=== PATIENT | male | born 1955 | race Caucasian/White ===

== ENCOUNTER 2017-01-22 13:26 | Emergency (ER) | payer BC, MEDICARE, OTHER ==
--- NOTE | 2017-01-22 14:23 | ER Document Report ---
ED Substance Abuse / Acc. OD - General Mode of Arrival: Medic Information source: Patient, Friend - HPI Patient complains to provider of: Accidental overdose Associated Symptoms: Other - See above <NATE ROBERTS - Last Filed: 01/22/17 14:38> <JOHN PAUL QUINTERO - Last Filed: 01/22/17 15:43> - General Chief Complaint: Possible Overdose Stated Complaint: POSSIBLE OVERDOSE Notes: Patient is a 61 year old male, with a past medical history of hypertension and cardiac stent placement, who presents to the emergency department via EMS for possible overdose of prescription drugs. Patient states that he took Ambien and Hydrocode over an hour before arrival. Patient states that he was not trying to harm himself but only wanted to feel better after finding out that his had left with another man this morning. Patient reports that these drugs were his own prescribed by his PCP, Dr. Smith. Patient reports that he has been taking Ambien for a long time and it takes a large dose to have any affect on him. Per friend at bedside patient's sister call EMS. PCP: Dr. Smith (NATE ROBERTS) - Related Data Allergies/Adverse Reactions: No Known Allergies Allergy (Unverified 01/22/17 14:08) Past Medical History - General Information source: Patient - Social History Smoking Status: Former Smoker Family History: Reviewed & Not Pertinent - Past Medical History Cardiac Medical History: Reports: Hx Hypercholesterolemia, Hx Hypertension Past Surgical History: Reports: Hx Coronary Stent, Hx Orthopedic Surgery <NATE ROBERTS - Last Filed: 01/22/17 14:38> Review of Systems - Review of Systems Constitutional: No symptoms reported EENT: No symptoms reported Cardiovascular: No symptoms reported Respiratory: No symptoms reported Gastrointestinal: No symptoms reported Genitourinary: No symptoms reported Male Genitourinary: No symptoms reported Musculoskeletal: No symptoms reported Skin: No symptoms reported Hematologic/Lymphatic: No symptoms reported Neurological/Psychological: No symptoms reported. denies: Suicidal ideation -: Yes All other systems reviewed and negative <NATE ROBERTS - Last Filed: 01/22/17 14:38> Physical Exam - Vital signs Interpretation: Normal - General General appearance: Appears well, Alert - HEENT Head: Normocephalic, Atraumatic Neck: No: Carotid bruit - Respiratory Respiratory status: No respiratory distress Chest status: Nontender Breath sounds: Normal Chest palpation: Normal - Cardiovascular Rhythm: Regular Heart sounds: Normal auscultation Murmur: No - Abdominal Inspection: Normal Distension: No distension Bowel sounds: Normal Tenderness: Nontender Organomegaly: No organomegaly - Extremities General upper extremity: Normal inspection General lower extremity: Normal inspection - Neurological Neuro grossly intact: Yes Cognition: Normal Orientation: AAOx4 Roxanna Coma Scale Eye Opening: Spontaneous Roxanna Coma Scale Verbal: Oriented Roxanna Coma Scale Motor: Obeys Commands Braggadocio Coma Scale Total: 15 Speech: Normal - Psychological Associated symptoms: Normal affect, Normal mood - Skin Skin Temperature: Warm Skin Moisture: Dry Skin Color: Normal <NATE ROBERTS - Last Filed: 01/22/17 14:38> Course - Laboratory Result Diagrams: 01/22/17 15:00 01/22/17 15:00 - EKG Interpretation by Me EKG shows normal: Sinus rhythm, [place], Intervals, ST-T Waves. abnormal: QRS Complexes Rate: Normal - 88 Rhythm: NSR Voltage: Consistant with LVH P Waves: LAE When compared to previous EKG there are: Previous EKG unavailable <JOHN PAUL QUINTERO - Last Filed: 01/22/17 15:43> - Vital Signs Vital signs: Temp Pulse Resp BP Pulse Ox 98.6 F 103 H 18 173/89 H 93 01/22/17 13:39 01/22/17 13:39 01/22/17 13:39 01/22/17 13:39 01/22/17 13:39 - Laboratory Laboratory results interpreted by me: 01/22/17 01/22/17 15:00 15:00 Seg Neutrophils % 79.9 H Lymphocytes % 9.8 L Urine Protein 100 H Discharge <NATE ROBERTS - Last Filed: 01/22/17 14:38> <JOHN PAUL QUINTERO - Last Filed: 01/22/17 15:43> - Discharge Clinical Impression: Reactive depression (situational) Overdose Qualifiers: Encounter type: initial encounter Injury intent: undetermined intent Qualified Code(s): T50.904A - Poisoning by unspecified drugs, medicaments and biological substances, undetermined, initial encounter Condition: Good Disposition: HOME, SELF-CARE Additional Instructions: Overdose You have taken more medication than you should have. After your evaluation and care, it is felt that your overdose is not likely to be harmful or of any significant consequences to you and you are being discharged. In the future, you should be careful not to take more medications than what is prescribed for you. Although your overdose does not seem to be of any danger to you at this time, if you develop any unusual or unexpected symptoms after your discharge, you should return to the Emergency Department immediately for re-evaluation. Depression Your evaluation reveals that you have mental depression. While symptoms may be vague, they often include disturbance of sleep, fatigue, loss of appetite, and general loss of interest in life. While depression may be a side effect of drugs, or a reaction to a major change in your life, many cases have no known cause. If depression is acute, and related to a major loss in your life, you can expect it to clear completely with time. If you have been depressed a long time , are prone to repeated bouts of depression or low mood, or have been thinking of suicide, get help. Depression can be treated with anti-depressant medication and counselling. Long-term depression will often take a few weeks to clear, even with appropriate medication. Follow-up care is important. Contact your physician, the hospital emergency center, crisis line, or your counsellor if you are losing control or having self-destructive thoughts. You should follow up with your Primary Care Physician, Dr. John Paul Smith, within 3-5 days. Referrals: JOHN PAUL SMITH [NO LOCAL MD] - Follow up in 3-5 days Scribe Attestation: 01/22/17 15:42 I personally performed the services described in the documentation, reviewed and edited the documentation which was dictated to the scribe in my presence, and it accurately records my words and actions. (JOHN PAUL QUINTERO) Scribe Documentation - Scribe Written by Ritchie:: ritchie Woodruff, 01/22/17, 1438 acting as scribe for :: Narendra <NATE ROBERTS - Last Filed: 01/22/17 14:38>
--- NOTE | 2017-01-22 15:15 | ER Document Report ---
ED Psych Disorder / Suicide - General Chief Complaint: Possible Overdose Stated Complaint: POSSIBLE OVERDOSE Time Seen by Provider: 01/22/17 14:10 Mode of Arrival: Medic Information source: Patient, Relative - daughter at bedside TRAVEL OUTSIDE OF THE [place] IN LAST 30 DAYS: No - HPI Patient complains to provider of: Overdose Suicide Risk Factors: Depressed, Male Situational problems related to: Spouse Overdose of: Other - ambien and oxycodone, maintains was not SI attempt Normal mood: No Associated symptoms: Depressed Similar symptoms previously: No Recently seen / treated by doctor: Yes Notes: Patient is a 61 year old male who presented to the ED today via EMS for an intentional OD (4-5 Ambien and 4-5 Oxycodone). Patient stated he had been talking to his sister over the telephone, they talk regularly, he informed her what he had taken, and she called EMS. He stated he "just wanted to feel better and was adamant this was not an attempt to hurt/harm/kill self." He denied previous SI attempts. He identified he found out his ran off with someone else. He denied previous hospitalizations. He stated his PCM is Dr. John Paul Vargas who prescribed all his medications. He stated in the past he had been prescribed Lexapro (after knee surgery, back issues, and getting disability) for a 4-5 year period. He noted he thinks his Ambien needs increased since it is not working as effectively as it once was. Patient was alert and oriented. Mood was depressed with congruent affect. He denied SI/HI, as well as previous attempts. He admitted he took extra medication to "feel better." He did not appear to bee responding to internal stimuli AEB fair eye contact, keeping on topic, and answering questions appropriately when addressed. Thought processes were linear. Conversational speech was somewhat mumbles yet audible and understandable. Intellectual abilities are estimated to be average. Insight, judgment and impulse control are fair AEB willingness to allow daughter to be part of discharge plan. Patient's daughter, Petra, was at bedside. She confirmed patient found out this morning about his of 42 years. She reported he has not done anything in the past to hurt/harm/kill self. She stated patient has to take his Ambien or else will not sleep. She stated she thought he had been prescribed Celexa when he went through disability and a life style change. She stated she lives down the road from patient and agreed to have control over patient's medications. Diagnosis: V61.10 (Z63.0) Relationship Distress with Spouse 311 (F32.9) Unspecified Depressive Disorder Impression/Plan: Recommendation to discharge patient home with daughter once medically cleared. He is psychiatrically cleared at this time. He does not meet [place] IVC criteria. He denied SI/HI and no observed psychosis. His daughter is at bedside (natural support), stated patient would not be left alone , and agreed to have control over patient's medications. Patient agreed to follow up with his PCM about his sleep medication and possible antidepressant. Consulted with Dr. Bower regarding the management and care of patient. - Related Data Allergies/Adverse Reactions: No Known Allergies Allergy (Unverified 01/22/17 14:08) Past Medical History - General Information source: Patient - Social History Smoking Status: Former Smoker Chew tobacco use (# tins/day): No Frequency of alcohol use: None Drug Abuse: None Family History: Reviewed & Not Pertinent - Past Medical History Cardiac Medical History: Reports: Hx Hypercholesterolemia, Hx Hypertension Psychiatric Medical History: Reports: Hx Depression Past Surgical History: Reports: Hx Coronary Stent, Hx Orthopedic Surgery Physical Exam - Vital signs Vitals: Temp Pulse Resp BP Pulse Ox 98.6 F 103 H 18 173/89 H 93 01/22/17 13:39 01/22/17 13:39 01/22/17 13:39 01/22/17 13:39 01/22/17 13:39 Course - Vital Signs Vital signs: Temp Pulse Resp BP Pulse Ox 98.6 F 103 H 18 173/89 H 93 01/22/17 13:39 01/22/17 13:39 01/22/17 13:39 01/22/17 13:39 01/22/17 13:39 Discharge - Discharge Condition: Fair Disposition: HOME, SELF-CARE Additional Instructions: Overdose You have taken more medication than you should have. After your evaluation and care, it is felt that your overdose is not likely to be harmful or of any significant consequences to you and you are being discharged. In the future, you should be careful not to take more medications than what is prescribed for you. Although your overdose does not seem to be of any danger to you at this time, if you develop any unusual or unexpected symptoms after your discharge, you should return to the Emergency Department immediately for re-evaluation. Depression Your evaluation reveals that you have mental depression. While symptoms may be vague, they often include disturbance of sleep, fatigue, loss of appetite, and general loss of interest in life. While depression may be a side effect of drugs, or a reaction to a major change in your life, many cases have no known cause. If depression is acute, and related to a major loss in your life, you can expect it to clear completely with time. If you have been depressed a long time , are prone to repeated bouts of depression or low mood, or have been thinking of suicide, get help. Depression can be treated with anti-depressant medication and counselling. Long-term depression will often take a few weeks to clear, even with appropriate medication. Follow-up care is important. Contact your physician, the hospital emergency center, crisis line, or your counsellor if you are losing control or having self-destructive thoughts. You should follow up with your Primary Care Physician, Dr. John Paul Vargas, within 3-5 days. Referrals: JOHN PAUL VARGAS [NO LOCAL MD] - Follow up in 3-5 days
[2017-01-22 15:26] LABS: ABSOLUTE EOSINOPHILS # (AUTO) 0.3 10^3/uL (0.0-0.6); ABSOLUTE LYMPHOCYTES (AUTO) 0.8 10^3/uL (0.5-4.7); ABSOLUTE MONOCYTES (AUTO) 0.5 10^3/uL (0.1-1.4); ABSOLUTE NEUT (AUTO) 6.3 10^3/uL (1.7-8.2); BASOPHILS % (AUTO) 0.5 % (0-2); EOSINOPHILS % (AUTO) 3.8 % (0-6); HEMATOCRIT 48.2 % (37.9-51.0); HEMOGLOBIN 16.5 g/dL (13.5-17.0); HGB HCT DIFFERENCE 1.3; LYMPHOCYTES % (AUTO) 9.8 % (13-45); MEAN CORPUSCULAR HEMOGLOBIN 30.2 pg (27.0-33.4); MEAN CORPUSCULAR HGB CONC 34.3 g/dL (32.0-36.0); MEAN CORPUSCULAR VOLUME 88 fl (80-97); RED BLOOD COUNT 5.47 10^6/uL (4.35-5.55); RED CELL DISTRIBUTION WIDTH 13.6 % (11.5-14.0); SEGMENTED NEUTROPHILS % (AUTO) 79.9 % (42-78); WHITE BLOOD COUNT 7.9 10^3/uL (4.0-10.5)
[2017-01-22 15:33] LABS: APPEARANCE,URINE SLIGHTLY-CLOUDY; BILIRUBIN,URINE NEGATIVE (NEGATIVE); GLUCOSE, URINE NEGATIVE (NEGATIVE); KETONES,URINE NEGATIVE (NEGATIVE); LEUKOCYTE ESTERASE,URINE NEGATIVE (NEGATIVE); NITRITE,URINE NEGATIVE (NEGATIVE); PROTEIN,URINE 100 mg/dL (NEGATIVE); URINE SPECIFIC GRAVITY 1.041; UROBILINOGEN,URINE NEGATIVE mg/dL (<2.0)
[2017-01-22 15:49] LABS: ALANINE AMINOTRANSFERASE 56 U/L (21-72); ALBUMIN 4.5 g/dL (3.5-5.0); ALCOHOL < 10 mg/dL (NONE DETECTED); ALKALINE PHOSPHATASE 91 U/L (38-126); ANION GAP 14 (5-19); ASPARTATE AMINO TRANSFERASE 50 U/L (17-59); BILIRUBIN,DIRECT 0.4 mg/dL (0.0-0.4); BILIRUBIN,TOTAL 0.7 mg/dL (0.2-1.3); BLOOD UREA NITROGEN 19 mg/dL (7-20); CALCIUM 9.2 mg/dL (8.4-10.2); CARBON DIOXIDE 22 mmol/L (22-30); CHLORIDE 103 mmol/L (98-107); CREATININE RESULT 0.94 mg/dL (0.52-1.25); GLUCOSE 108 mg/dL (75-110); POTASSIUM 4.4 mmol/L (3.6-5.0); SODIUM 138.5 mmol/L (137-145); TOTAL PROTEIN 8.4 g/dL (6.3-8.2)
[2017-01-22 15:52] LABS: URINE BARBITURATES SCREEN NEGATIVE; URINE METHADONE SCREEN NEGATIVE; URINE OPIATES LOW UNCONFIRMED POSITIVE; URINE PHENCYCLIDINE SCREEN NEGATIVE
[2017-01-22 16:09] VITALS: BP 179/94
--- NOTE | 2017-01-22 21:11 | EKG REPORT ---
SEVERITY:- ABNORMAL ECG - SINUS RHYTHM PROBABLE LEFT ATRIAL ABNORMALITY LEFT VENTRICULAR HYPERTROPHY : Confirmed by: Carl Farfan MD 22-Jan-2017 21:10:14
== END 2017-01-22 16:11 | disposition home or self-care (01) ==
LOC: ER 13:26
DX: T42.6X2A Poisoning by other antiepileptic and sedative-hypnotic drugs, intentional self-harm, initial encounter (principal); Z63.0 Problems in relationship with spouse or partner; F32.9 Major depressive disorder, single episode, unspecified; Z87.891 Personal history of nicotine dependence
CPT/HCPCS: 36415; 80053; 80307; 81001; 85025; 93005; 93010; 99284

== ENCOUNTER 2017-09-06 02:34 | Emergency (ER) | payer MEDICARE ==
[2017-09-06 04:44] LABS: APPEARANCE,URINE SLIGHTLY-CLOUDY; BILIRUBIN,URINE NEGATIVE (NEGATIVE); COLOR,URINE YELLOW; GLUCOSE, URINE NEGATIVE (NEGATIVE); KETONES,URINE NEGATIVE (NEGATIVE); LEUKOCYTE ESTERASE,URINE NEGATIVE (NEGATIVE); NITRITE,URINE NEGATIVE (NEGATIVE); PROTEIN,URINE NEGATIVE (NEGATIVE); URINE SPECIFIC GRAVITY 1.023; UROBILINOGEN,URINE NEGATIVE mg/dL (<2.0)
[2017-09-06] MEDS ORDERED: CYCLOBENZAPRINE HCL 10 MG TABLET PO ONE (06:19)
[2017-09-06] MEDS ORDERED: KETOROLAC TROMETHAMINE 60 MG/2 ML SDV IM ONE (06:19)
[2017-09-06] MEDS ORDERED: LIDOCAINE 5% (700 MG) TRANSDERMAL ADH..PATCH TP ONE (06:19)
[2017-09-06] MEDS ORDERED: DEXAMETHASONE SOD PHOS INJ 10 MG/1 ML VIAL IM ONE (06:19)
--- NOTE | 2017-09-06 06:19 | ER Document Report ---
ED Neck/Back Problem - General Chief Complaint: Back Pain Stated Complaint: BACK PAIN Time Seen by Provider: 09/06/17 05:46 Mode of Arrival: Ambulatory Information source: Patient Notes: 61-year-old male patient presented to ED for complaint of low back pain. He states he has had a history of chronic back pain and was seen by Carline jeknins a couple months ago. He states that a few days ago he was picking up trash in his yard and felt a very sharp pain in his left lower back and it got worse over time. He states he is now in constant throbbing pain in his lower left back radiating across his left buttocks down his leg. He states the last time he saw the doctor they told him that he had herniated disc and did he did not need surgery at that time. He denies any loss control of bowel bladder, loss of control of lower extremities, any loss of sensation to his legs propped , or any saddle anesthesia. TRAVEL OUTSIDE OF THE [place] IN LAST 30 DAYS: No - HPI Patient complains to provider of: Lower back Onset: Other - 3 days Where: Home, Outdoors Onset: Chronic - Chronic with exacerbation 3 days ago Timing: Still present Quality of pain: Sharp, Throbbing Severity: Moderate Pain Level: 3 Context: Bending, Lifting Recent injury: Possibly Associated symptoms: Like prior neck/back pain, Radiation to leg, Sweaty - Sweating earlier while waiting in the emergency room no sweating at this time, Lower back pain. denies: Constipation, Fever, Incontinence, Motor loss, Numbness/tingling, Radiation to arm, Radiation to chest, Sensory loss, Unable to urinate, Upper back pain Exacerbated by: Movement of trunk Relieved by: Nothing Similar symptoms previously: Yes Recently seen / treated by doctor: No - Related Data Allergies/Adverse Reactions: No Known Allergies Allergy (Unverified 01/22/17 14:08) Past Medical History - General Information source: Patient - Social History Smoking Status: Former Smoker Cigarette use (# per day): No Chew tobacco use (# tins/day): No Smoking Education Provided: No Frequency of alcohol use: None Drug Abuse: None Occupation: No Lives with: Family Family History: Arthritis, CAD, DM, Hyperlipidemia, Hypertension, Malignancy, Thyroid Disfunction. denies: COPD, CVA Patient has suicidal ideation: No Patient has homicidal ideation: No - Past Medical History Cardiac Medical History: Reports: Hx Coronary Artery Disease, Hx Hypercholesterolemia, Hx Hypertension Pulmonary Medical History: Reports: None EENT Medical History: Reports: None Neurological Medical History: Reports: None Endocrine Medical History: Reports: None Renal/ Medical History: Reports: None Malignancy Medical History: Reports None GI Medical History: Reports: None Musculoskeltal Medical History: Reports Hx Arthritis, Reports Hx Musculoskeletal Trauma Skin Medical History: Reports None Psychiatric Medical History: Reports: Hx Depression Traumatic Medical History: Reports: None Infectious Medical History: Reports: None Past Surgical History: Reports: Hx Coronary Stent - 2, Hx Orthopedic Surgery - Left knee replacement Review of Systems - Review of Systems Notes: Constitutional: [PRESENT: as per HPI. ABSENT: chills, fever(s), headache(s), weight gain, weight loss] Eyes: [ABSENT: visual disturbances] Ears: [ABSENT: hearing changes] Cardiovascular: [ABSENT: chest pain, dyspnea on exertion, edema, orthropnea, palpitations] Respiratory: [ABSENT: cough, hemoptysis] Gastrointestinal: [ABSENT: abdominal pain, constipation, diarrhea, hematemesis, hematochezia, nausea, vomiting] Genitourinary: [ABSENT: dysuria, hematuria] Musculoskeletal: Back pain radiating across the left buttocks down the left leg Integumentary: [ABSENT: rash, wounds] Neurological: [ABSENT: abnormal gait, abnormal speech, confusion, dizziness, focal weakness, syncope] Psychiatric: [ABSENT: anxiety, depression, homicidal ideation, suicidal ideation ] Endocrine: [ABSENT: cold intolerance, heat intolerance, menstrual abnormalities , polydipsia, polyuria] Hematologic/Lymphatic: [ABSENT: easy bleeding, easy bruising, lymphadenopathy] Physical Exam - Vital signs Vitals: Temp Pulse Resp BP Pulse Ox 98.2 F 70 16 184/84 H 98 09/06/17 02:46 09/06/17 02:46 09/06/17 02:46 09/06/17 02:46 09/06/17 02:46 - Notes Notes: PHYSICAL EXAMINATION: GENERAL: Well-appearing, well-nourished and in no acute distress. HEAD: Atraumatic, normocephalic. EYES: Pupils equal round and reactive to light, extraocular movements intact, sclera anicteric, conjunctiva are normal. ENT: Nares patent, oropharynx clear without exudates. Moist mucous membranes. NECK: Normal range of motion, supple without lymphadenopathy LUNGS: Breath sounds clear to auscultation bilaterally and equal. No wheezes rales or rhonchi. HEART: Regular rate and rhythm without murmurs ABDOMEN: Soft, nontender, nondistended abdomen. No guarding, no rebound. No masses appreciated. Musculoskeletal: Normal range of motion, no pitting or edema. No cyanosis. Tenderness to the left lower back across the left buttocks. No loss of sensation to the buttocks he is able to feel everywhere I touch. No loss of sensation to the leg he is able to determine sharp and dull. Patient walks with the even steady gait. Had some discomfort getting from lying to sitting but once he was sitting up was able to keep his balance. NEUROLOGICAL: Cranial nerves grossly intact. Normal speech, normal gait. Normal sensory, motor exams knee and ankle reflexes a 2 normal sensory to legs and buttocks PSYCH: Normal mood, normal affect. SKIN: Warm, Dry, normal turgor, no rashes or lesions noted. Course - Re-evaluation Re-evalutation: 09/06/17 08:47 Patient has no signs or symptoms of cauda equina, no loss of sensation to the legs no saddle anesthesia, no loss of control of bowel bladder or lower extremities. Patient had normal sensation to his buttocks and legs. Patient was treated with Toradol Decadron and Lidoderm patch and Flexeril in the emergency room and discharged home with a prescription for Flexeril. Patient to follow-up with his back specialist. - Vital Signs Vital signs: Temp Pulse Resp BP Pulse Ox 98.1 F 75 16 149/79 H 96 09/06/17 06:34 09/06/17 06:34 09/06/17 06:34 09/06/17 06:34 09/06/17 06:34 Discharge - Discharge Clinical Impression: Left low back pain Qualifiers: Chronicity: chronic Sciatica presence: with sciatica Sciatica laterality: sciatica of left side Qualified Code(s): M54.42 - Lumbago with sciatica, left side Condition: Stable Disposition: HOME, SELF-CARE Additional Instructions: LOW BACK PAIN: Three out of every four people will have an episode of disabling back pain during their lifetime. Most commonly the pain is due to straining of the muscles and ligaments in the low back. Usual treatment includes: (1) Rest on a firm surface. Avoid lying on your stomach. (2) Ice pack the painful area. After a few days, gentle heat may be used intermittently to relax the area, or ice packs can be continued. (3) Medication may be needed -- muscle relaxers and antiinflammatory medicines are commonly used. (4) As the back improves, exercises are prescribed to strengthen the back and abdominal muscles. Your doctor will advise you on the proper care for your back at each stage in your recovery. You may be better in a few days -- or healing may take several weeks. If new symptoms of a "herniated disc" (radiation of pain, numbness, or tingling down the back of the leg or weakness in the leg) occur, you should be re-examined. Further testing may be necessary. Chronic Pain Control Stress, inactivity, and depression make pain more severe regardless of the cause of the pain. Stress and poor physical condition can cause pain such as headaches and backache. Relaxation: Rest in a quiet place with your eyes closed for 20 minutes twice daily. Concentrate on a pleasant image, or simply "feel" your breathing. Clear your mind. Stress management: Deal with your "stressors." Either take action, or eliminate the stressor from your life. Don't let things hang over you. Accept those things you can't change. Nutrition: Eat small, balanced meals -- don't skip, don't overeat. Meals should be high-carbohydrate, low-sugar, low-fat. Exercise: Exercise helps painful conditions and eases stress. Get 30 minutes of moderate exercise, five days a week. Do an activity that does not flare your pain. Precautions: Pain which continues to disrupt daily activities, or which changes in nature, requires a medical evaluation. Pain Clinic referral is available. We do not manage chronic pain in the Emergency Department. We will try to appropriately help you through an acute flare of your chronic painful condition , but for on-going chronic pain that does not improve, you will need to see your private doctor or paint trimmer pipe bowls. We do not provide repeated medication management of chronic painful conditions. If you wish, we can provide the name of local pain management physicians. Stretching Exercises for the Back The physician has recommended that you begin stretching exercises for your back. These are often used even while the back is painful. However, you should notify the physician if the activities seem to increase your pain. PELVIC TILT: Lie flat on your back with knees bent. Tighten your stomach and buttock muscles so it flattens your lower back against the floor. Hold 10 seconds. Repeat 10 times, twice daily. KNEE RAISE: Lying on the back with knees bent, raise one knee to your chest, then the other. Hold both knees against the chest 10 seconds, then lower one knee at a time. Repeat 10 times, twice daily. PARTIAL TRUNK RAISE: Lie face down, arms at your sides. Keeping your waist on the floor, use your arms raise your chest up. Support yourself on your elbows for 30 seconds. Repeat twice daily, increasing the time to two minutes as you recover. STEROID MEDICATION: You have been given an injection of medicine of the cortisone/steroid class. This medication is used to control inflammation or allergy. It is often continued as a pill for a short period of time, until the acute process subsides. There are usually no side effects from short-term use of cortisone-like medications. Some persons feel an increased sense of well-being and are not sleepy at bedtime. Long-term use of cortisone medications is best avoided, unless required for a severe condition. If your condition does not remit, or relapses after the course of corticosteroid medication, you should consult your physician. Toradol Injection You have been given an injection of ketorolac tromethamine (Toradol). This is an excellent, safe drug for pain control. It also has potent antiinflammatory action. You should have significant pain relief within about one hour. Toradol is not addicting and is non-sedating. It does not interfere with driving or work. Call or return if you develop itching, hives, shortness of breath, or rash. ICE PACKS: Apply ice packs frequently against the painful area. Many different schedules are recommended, such as "20 minutes on, 20 minutes off" or "one hour ice, two hours rest." If you need to work, you may need to go longer between ice treatments. You should plan to have the area ice packed AT LEAST one fourth of the time. The ice should be applied over the wrap, tape, or splint, or over a layer of cloth -- not directly against the skin. Some ice bags have a built-in cloth and can be put directly on the skin. WARM PACKS: After approximately two days, apply gentle heat (such as a heating pad or hot water bottle) for about 20 to 30 minutes about every two hours -- at least four times daily. Warmth and elevation will help you make a more rapid recovery , and will ease the pain considerably. Do not use HOT heat, and never apply heat for longer than 30 minutes. The continuous heat can invisibly damage skin and muscles -- even when no burn is seen on the surface. Damaged muscles can make you MORE sore. Muscle Relaxers Muscle relaxing medications are usually prescribed for acute muscle spasm or injury to the neck and back. They are often combined with antiinflammatory pain medication for increased relief. You may stop the muscle relaxer when the pain and stiffness have improved. Start the medication again if spasms recur. Muscle relaxers may cause drowsiness, especially with the first dose. Do not operate machinery or drive while under the effects of the medication. Most muscle relaxers last up to 24 hours. Do not combine the medication with alcohol. FOLLOW-UP CARE: If you have been referred to a physician for follow-up care, call the physician s office for an appointment as you were instructed or within the next two days. If you experience worsening or a significant change in your symptoms, notify the physician immediately or return to the Emergency Department at any time for re-evaluation. Prescriptions: Cyclobenzaprine HCl [Flexeril 5 mg Tablet] 5 mg PO TID #15 tablet Forms: Elevated Blood Pressure Referrals: IRIS SMITH [Primary Care Provider] - Follow up as needed
[2017-09-06 06:42] VITALS: BP 149/79
== END 2017-09-06 06:42 | disposition home or self-care (01) ==
LOC: ER 02:34
DX: M54.42 Lumbago with sciatica, left side (principal)
CPT/HCPCS: 99283; 96372; 81001; A9270; J1885; J1100

== ENCOUNTER 2020-02-06 03:24 | Emergency (ER) | payer MEDICARE ==
[2020-02-06 03:49] VITALS: BP 193/69
[2020-02-06] MEDS ORDERED: MORPHINE SULFATE IR 15 MG TABLET PO ONE (03:56)
--- NOTE | 2020-02-06 03:58 | ER Document Report ---
ED Medical Screen (RME) - General Chief Complaint: Back Pain Stated Complaint: BACK PAIN Time Seen by Provider: 02/06/20 03:55 Primary Care Provider: IRIS SMITH [Primary Care Provider] - Follow up as needed Notes: 64-year-old male with chief complaint of right flank pain for 1 week. He denies injury, he states he was seen at [facility] and placed on Percocet, he states the Percocet does help with the pain but he started breaking out into an itchy rash because of this. He states now he has nothing to take for pain and the pain keeps coming and sharp ways. He denies vomiting, urinary symptoms, fever. He denies history of back surgery, pain does shoot down to the buttocks area but not into the leg, main pain is in the mid back and right side. He does have a history of kidney stones. TRAVEL OUTSIDE OF THE [place] IN LAST 30 DAYS: No - Related Data Allergies/Adverse Reactions: No Known Allergies Allergy (Unverified 01/22/17 14:08) Home Medications: plavix, coreg, low dose asa, lisinopril, flomax, Past Medical History - Past Medical History Cardiac Medical History: Reports: Hx Coronary Artery Disease, Hx Hypercholesterolemia, Hx Hypertension Renal/ Medical History: Denies: Hx Peritoneal Dialysis Musculoskeltal Medical History: Reports Hx Arthritis, Reports Hx Musculoskeletal Trauma Psychiatric Medical History: Reports: Hx Depression Past Surgical History: Reports: Hx Coronary Stent - 2, Hx Orthopedic Surgery - Left knee replacement Physical Exam - Vital signs Vitals: Temp Pulse Resp BP Pulse Ox 98 F 47 L 18 193/69 H 100 02/06/20 03:34 02/06/20 03:34 02/06/20 03:34 02/06/20 03:34 02/06/20 03:34 - Back Back: Other - Difficult to examine in triage but no overt tenderness noted over the back, no midline tenderness, no saddle anesthesia, normal distal neurovascular exam Course - Re-evaluation Re-evalutation: Patient has intermittent sharp pains, no injury, history of kidney stones, no imaging on previous evaluation when he was prescribed Percocet. Work-up pending. I have greeted and performed a rapid initial assessment of this patient. A comprehensive ED assessment and evaluation of the patient, analysis of test results and completion of the medical decision making process will be conducted by additional ED providers. - Vital Signs Vital signs: Temp Pulse Resp BP Pulse Ox 98 F 47 L 18 193/69 H 100 02/06/20 03:34 02/06/20 03:34 02/06/20 03:34 02/06/20 03:34 02/06/20 03:34 Doctor's Discharge - Discharge Referrals: IRIS SMITH [Primary Care Provider] - Follow up as needed
[2020-02-06 05:13] LABS: ABSOLUTE BASOPHILS # (AUTO) 0.1 10^3/uL (0.0-0.2); ABSOLUTE EOSINOPHILS # (AUTO) 0.3 10^3/uL (0.0-0.6); ABSOLUTE LYMPHOCYTES (AUTO) 2.7 10^3/uL (0.5-4.7); ABSOLUTE MONOCYTES (AUTO) 0.5 10^3/uL (0.1-1.4); ABSOLUTE NEUT (AUTO) 4.2 10^3/uL (1.7-8.2); BASOPHILS % (AUTO) 0.8 % (0-2); EOSINOPHILS % (AUTO) 3.2 % (0-6); HEMATOCRIT 44.5 % (37.9-51.0); HEMOGLOBIN 15.3 g/dL (13.5-17.0); LYMPHOCYTES % (AUTO) 34.9 % (13-45); MEAN CORPUSCULAR HEMOGLOBIN 30.2 pg (27.0-33.4); MEAN CORPUSCULAR HGB CONC 34.4 g/dL (32.0-36.0); MEAN CORPUSCULAR VOLUME 88 fl (80-97); MONOCYTES % (AUTO) 6.5 % (3-13); PLATELET COUNT 231 10^3/uL (150-450); RED BLOOD COUNT 5.07 10^6/uL (4.35-5.55); RED CELL DISTRIBUTION WIDTH 14.3 % (11.5-14.0); SEGMENTED NEUTROPHILS % (AUTO) 54.6 % (42-78); TOTAL CELLS COUNTED % (AUTO) 100 %; WHITE BLOOD COUNT 7.8 10^3/uL (4.0-10.5)
[2020-02-06 05:28] LABS: ALBUMIN 4.6 g/dL (3.5-5.0); ALKALINE PHOSPHATASE 98 U/L (38-126); ANION GAP 8 (5-19); ASPARTATE AMINO TRANSFERASE 36 U/L (17-59); BILIRUBIN,DIRECT 0.1 mg/dL (0.0-0.4); BILIRUBIN,TOTAL 0.7 mg/dL (0.2-1.3); BLOOD UREA NITROGEN 19 mg/dL (7-20); CALCIUM 9.4 mg/dL (8.4-10.2); CARBON DIOXIDE 26 mmol/L (22-30); CHLORIDE 104 mmol/L (98-107); GLUCOSE 114 mg/dL (75-110); POTASSIUM 4.1 mmol/L (3.6-5.0); TOTAL PROTEIN 8.1 g/dL (6.3-8.2)
[2020-02-06 06:06] LABS: APPEARANCE,URINE CLEAR; BILIRUBIN,URINE NEGATIVE (NEGATIVE); COLOR,URINE YELLOW; GLUCOSE, URINE NEGATIVE (NEGATIVE); KETONES,URINE NEGATIVE (NEGATIVE); LEUKOCYTE ESTERASE,URINE NEGATIVE (NEGATIVE); NITRITE,URINE NEGATIVE (NEGATIVE); PROTEIN,URINE NEGATIVE (NEGATIVE); URINE SPECIFIC GRAVITY 1.026; UROBILINOGEN,URINE NEGATIVE mg/dL (<2.0)
--- NOTE | 2020-02-06 06:07 | RADIOLOGY REPORT (SQ) ---
EXAM DESCRIPTION: CT ABDOMEN PELVIS WITHOUT IV CONTRAST COMPLETED DATE/TME: 02/06/2020 03:56 CLINICAL HISTORY: right flank pain COMPARISON: None Available. TECHNIQUE: CT of the abdomen and pelvis without IV contrast. Evaluation of the solid organs and vasculature is suboptimal due to lack of IV contrast. FINDINGS: Lung Bases: The visualized lung bases are clear. Coronary artery atherosclerosis. Bones: Degenerative endplate spondylosis of the spine. Abdomen: Liver: The liver has normal size and density. Gallbladder: No calcified gallstones. Spleen, Pancreas, and Adrenal Glands: The spleen, pancreas, and adrenal glands are unremarkable. Kidneys: The kidneys have normal size without evidence of hydronephrosis. No obstructing ureteral calculi. Vasculature: Aortoiliac atherosclerosis. IVC is unremarkable. Stomach: The stomach and duodenum have normal course. Other: No free intraperitoneal air. No free fluid or lymphadenopathy. Pelvis: Bladder: Urinary bladder is unremarkable. Bowel: No dilated loops of large or small bowel. Appendix: Normal appendix. Pelvis: Prostate is not enlarged. IMPRESSION: 1. No acute inflammatory or obstructive process identified. 2. Enlarged prostate. This exam was performed according to our departmental dose-optimization program, which includes automated exposure control, adjustment of the mA and/or kV according to patient size and/or use of iterative reconstruction technique.
[2020-02-06] MEDS ORDERED: MORPHINE SULFATE 10 MG/ML INJ IV ONE (08:13)
[2020-02-06] MEDS ORDERED: METHYLPREDNISOLONE INJ 125 MG/2 ML SDV IV ONE (08:14)
[2020-02-06] MEDS ORDERED: KETOROLAC TROMETHAMINE INJ/PF 30 MG/1 ML SDV IV ONE (08:14)
--- NOTE | 2020-02-06 08:37 | ER Document Report ---
Entered by EVERTON ROSSI SCRIBE 02/06/20 0811 Acting as scribe for:JOHN NICHOLAS MD ED General - General Chief Complaint: Back Pain Stated Complaint: BACK PAIN Time Seen by Provider: 02/06/20 03:55 Primary Care Provider: IRIS SMITH [Primary Care Provider] - Follow up as needed Information source: Patient Notes: This 64 year old male patient presents to the emergency department today with complaints of right lower flank pain. Patient states the pain began x1 week ago and travels to the back of his right leg. Patient states he cannot walk without pain and has not taken anything for relief. Patient states he has had similar pain before, once due to a kidney stone, and another time for a pinched nerve. Patient denies any injury, problems eating, or N/V, and states his bowel is moving normally. TRAVEL OUTSIDE OF THE [place] IN LAST 30 DAYS: No - Related Data Allergies/Adverse Reactions: No Known Allergies Allergy (Unverified 01/22/17 14:08) Home Medications: plavix, coreg, low dose asa, lisinopril, flomax, Past Medical History - General Information source: Patient - Social History Smoking Status: Never Smoker Cigarette use (# per day): No Frequency of alcohol use: None Family History: Arthritis, CAD, DM, Hyperlipidemia, Hypertension, Malignancy, Thyroid Disfunction Patient has homicidal ideation: No - Past Medical History Cardiac Medical History: Reports: Hx Coronary Artery Disease, Hx Hypercholesterolemia, Hx Hypertension GI Medical History: Reports: Hx Diverticulitis Musculoskeletal Medical History: Reports Hx Arthritis, Reports Hx Musculoskeletal Trauma Psychiatric Medical History: Reports: Hx Depression Past Surgical History: Reports: Hx Coronary Stent - 6, Hx Orthopedic Surgery - Left knee replacement Review of Systems - Review of Systems Constitutional: No symptoms reported EENT: No symptoms reported Cardiovascular: No symptoms reported Respiratory: No symptoms reported Gastrointestinal: See HPI. denies: Nausea, Vomiting, Poor appetite Genitourinary: See HPI Male Genitourinary: No symptoms reported Musculoskeletal: See HPI, Back pain - R flank Skin: No symptoms reported Hematologic/Lymphatic: No symptoms reported Neurological/Psychological: No symptoms reported -: Yes All other systems reviewed and negative Physical Exam - Vital signs Vitals: Temp Pulse Resp BP Pulse Ox 98 F 47 L 18 193/69 H 100 02/06/20 03:34 02/06/20 03:34 02/06/20 03:34 02/06/20 03:34 02/06/20 03:34 - General General appearance: Appears well, Alert - HEENT Head: Normocephalic, Atraumatic Eyes: Normal Pupils: PERRL - Respiratory Respiratory status: No respiratory distress Chest status: Nontender Breath sounds: Normal Chest palpation: Normal - Cardiovascular Rhythm: Regular Heart sounds: Normal auscultation Murmur: No - Abdominal Inspection: Normal Distension: No distension Bowel sounds: Normal Tenderness: Nontender - Back Back: Tender - R flank - Extremities General upper extremity: Normal inspection. No: Edema General lower extremity: Normal inspection, Normal ROM. No: Edema - Neurological Neuro grossly intact: Yes Cognition: Normal Orientation: AAOx4 Speech: Normal Sensory: Normal - Psychological Associated symptoms: Normal affect, Normal mood - Skin Skin Temperature: Warm Skin Moisture: Dry Skin Color: Normal Course - Re-evaluation Re-evalutation: 02/06/20 08:29 Patient reports right flank pain radiating down the back of his leg from his right flank buttock region down the back of his leg. - Vital Signs Vital signs: Temp Pulse Resp BP Pulse Ox 98 F 47 L 18 193/69 H 100 02/06/20 03:34 02/06/20 03:34 02/06/20 03:34 02/06/20 03:34 02/06/20 03:34 02/06/20 08:29 Vital signs shows systolic hypertension 193/69. Patient is currently in pain at this time IV pain medications have been ordered. Patient does have a history of hypertension. - Laboratory Result Diagrams: 02/06/20 04:55 02/06/20 04:55 Laboratory results interpreted by me: 02/06/20 02/06/20 04:55 04:55 RDW 14.3 H Glucose 114 H Lipase 852.8 H 02/06/20 08:29 Labs unremarkable except for glucose of 114 and a lipase of 852. Patient denies any alcohol use denies any pancreatitis denies any abdominal pain. States he did have a difficult bowel movement few days ago but has no complaints of bowel habits at this time. Reexamined patient's abdomen there is some small ascites noted. But there is no rebound tenderness on palpation. Patient reports no evidence or knowledge of passing any gallbladder stones. Patient's only complaint is his back pain that radiates down his right leg. - Diagnostic Test Radiology reviewed: Image reviewed, Reports reviewed Radiology results interpreted by me: 02/06/20 08:30 CT scan of abdomen and pelvis shows no acute process, organs including pancreas was within normal limits.. There was noted on the CT scan that the bones shows degenerative endplates of the vertebral bodies. 02/06/20 08:32 Discharge - Discharge Clinical Impression: Low back pain potentially associated with radiculopathy, Elevated lipase Condition: Good Disposition: HOME, SELF-CARE Instructions: Low Back Pain ([facility]) Prescriptions: Tramadol HCl [Ultram 50 mg Tablet] 50 mg PO Q4HP PRN #12 tab PRN Reason: Cyclobenzaprine HCl [Flexeril 10 mg Tablet] 10 mg PO TIDP PRN #15 tab PRN Reason: Ibuprofen [Ibu] 800 mg PO TID PRN #21 tablet PRN Reason: For Pain Scale 3-5 Methylprednisolone [Medrol Dosepack (4 mg/Tab) 21 Tab/Dosepak] 4 mg PO ASDIR PRN #21 tab.[id number] PRN Reason: Referrals: IRIS SMITH [Primary Care Provider] - Follow up as needed I personally performed the services described in the documentation, reviewed and edited the documentation which was dictated to the scribe in my presence, and it accurately records my words and actions.
== END 2020-02-06 08:55 | disposition home or self-care (01) ==
LOC: ER 03:24
DX: M54.16 Radiculopathy, lumbar region (principal); M54.5 Low back pain; R74.8 Abnormal levels of other serum enzymes; M54.9 Dorsalgia, unspecified; R10.31 Right lower quadrant pain; M79.604 Pain in right leg; Z79.02 Long term (current) use of antithrombotics/antiplatelets; Z79.899 Other long term (current) drug therapy; Z79.82 Long term (current) use of aspirin
CPT/HCPCS: 99284; 96374; 96375; 36415; 83690; 85025; 80053; 81001; 74176; J2930; J1885; J2270; A9270